=== PATIENT | male | born 1995 | race African-American/Black ===

== ENCOUNTER 2018-12-16 16:54 | Emergency (ER) | payer OTHER ==
[~2018-12-16] VITALS: Ht 177.8 cm; Wt 113.4 kg
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
[2018-12-16] MEDS ORDERED: NEOMY/BACITR/POLYMYXIN OINT PACKET. TP ONE (17:15)
[2018-12-16 17:20] VITALS: BP 138/74
[2018-12-16] MEDS ORDERED: DIPHTH,PERTUSS(ACELL),TET TOX 0.5 ML DISP.SYRIN. VAX IM ONE ×2 (17:28→17:30)
--- NOTE | 2018-12-16 17:38 | RAD ---
CT scan of the head without contrast 12/16/2018 Clinical History: Head injury. Technique: Unenhanced, contiguous, 5 mm axial sections were obtained through the head. One or more of the following individualized dose reduction techniques were utilized for this study: 1. Automated exposure control. 2. Adjustment of the mA and/or kV according to patient size. 3. Use of iterative reconstruction technique. Findings: The ventricles and sulci are within normal limits in size and configuration. No area of abnormal attenuation is seen on the right parenchyma. No extra-axial fluid collection is seen. No extra-axial fluid collection is noted. No skull fracture is seen. Impression: No acute intracranial abnormality is seen. CT scan of the cervical spine without contrast 12/16/2018 Clinical history: Neck injury. Technique: Unenhanced, contiguous, 0.625 mm axial sections were obtained through the cervical spine. Axial, coronal and sagittal reconstructed images were obtained. One or more of the following individualized dose reduction techniques were utilized for this study: 1. Automated exposure control. 2. Adjustment of the mA and/or kV according to patient size. 3. Use of iterative reconstruction technique. Findings: Sagittal and coronal reconstructed images demonstrate mild lateral curvature of the cervical spine, convex to the right. There is slight reversal of the normal cervical lordosis. No fracture or subluxation cervical vertebrae is seen. Impression: No fracture or subluxation of the cervical vertebra is identified. Electronically signed by: Florentino Thakur MD (12/16/2018 5:35 PM) [facility]
== END 2018-12-16 18:17 | disposition home or self-care (01) ==
LOC: ER 16:54
DX: S80.212A Abrasion, left knee, initial encounter (principal); S80.211A Abrasion, right knee, initial encounter; S50.312A Abrasion of left elbow, initial encounter; S50.812A Abrasion of left forearm, initial encounter; S50.311A Abrasion of right elbow, initial encounter; S50.811A Abrasion of right forearm, initial encounter; S09.8XXA Other specified injuries of head, initial encounter; S19.89XA Other specified injuries of other specified part of neck, initial encounter; W18.39XA Other fall on same level, initial encounter; Y93.89 Activity, other specified; Y92.89 Other specified places as the place of occurrence of the external cause; Y99.8 Other external cause status
CPT/HCPCS: 70450; 72125; 90471; 90715; 99284